=== PATIENT | male | born 1980 | race African-American/Black ===

== ENCOUNTER → 2016-08-08 | Outpatient (CLI) | payer OTHER ==
[~2016-08-08] MED LIST: ANUSOL-HC25 MG/SUPP PR; DIFLUCAN PO; MYCOLOG II CREA15 GM TOP; NO MEDICATIONS
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
== END | disposition home or self-care (01) ==
LOC: SRAD 18:12
DX: M79.641 Pain in right hand (principal); R07.89 Other chest pain; M54.6 Pain in thoracic spine; S62.524A Nondisplaced fracture of distal phalanx of right thumb, initial encounter for closed fracture; S22.31XA Fracture of one rib, right side, initial encounter for closed fracture; V89.2XXA Person injured in unspecified motor-vehicle accident, traffic, initial encounter
CPT/HCPCS: 71020; 71100; 73130

== ENCOUNTER → 2016-08-21 | Outpatient (CLI) | payer OTHER ==
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
== END | disposition home or self-care (01) ==
LOC: SRAD 13:32
DX: S22.008S Other fracture of unspecified thoracic vertebra, sequela (principal); S22.41XD Multiple fractures of ribs, right side, subsequent encounter for fracture with routine healing
CPT/HCPCS: 71100

== ENCOUNTER → 2016-09-20 | Outpatient (CLI) | payer OTHER ==
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
== END | disposition home or self-care (01) ==
LOC: SRAD 10:50
DX: S22.008S Other fracture of unspecified thoracic vertebra, sequela (principal); S22.41XS Multiple fractures of ribs, right side, sequela
CPT/HCPCS: 71100

== ENCOUNTER → 2016-10-22 | Outpatient (CLI) | payer OTHER ==
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
== END | disposition home or self-care (01) ==
LOC: SRAD 11:29
DX: S22.008S Other fracture of unspecified thoracic vertebra, sequela (principal); S22.41XD Multiple fractures of ribs, right side, subsequent encounter for fracture with routine healing
CPT/HCPCS: 71101

== ENCOUNTER → 2016-11-21 | Outpatient (CLI) | payer OTHER ==
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
== END | disposition home or self-care (01) ==
LOC: SRAD 12:31
DX: S22.008S Other fracture of unspecified thoracic vertebra, sequela (principal); S22.41XD Multiple fractures of ribs, right side, subsequent encounter for fracture with routine healing
CPT/HCPCS: 71101

== ENCOUNTER → 2016-11-29 | Outpatient (CLI) | payer OTHER ==
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
== END | disposition home or self-care (01) ==
LOC: SRAD 10:13
DX: S62.521D Displaced fracture of distal phalanx of right thumb, subsequent encounter for fracture with routine healing (principal)
CPT/HCPCS: 73130

== ENCOUNTER → 2016-12-27 | Outpatient (CLI) | payer OTHER ==
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
== END | disposition home or self-care (01) ==
LOC: SRAD 10:55
DX: S22.008A Other fracture of unspecified thoracic vertebra, initial encounter for closed fracture (principal); S22.41XD Multiple fractures of ribs, right side, subsequent encounter for fracture with routine healing
CPT/HCPCS: 71100

== ENCOUNTER → 2017-01-21 | Outpatient (CLI) | payer OTHER ==
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
== END | disposition home or self-care (01) ==
LOC: SRAD 11:12
DX: S22.008S Other fracture of unspecified thoracic vertebra, sequela (principal); S22.41XD Multiple fractures of ribs, right side, subsequent encounter for fracture with routine healing; S22.31XK Fracture of one rib, right side, subsequent encounter for fracture with nonunion
CPT/HCPCS: 71100